=== PATIENT | male | born 1970 | race Caucasian/White ===

== ENCOUNTER 2016-04-06 06:31 | Day surgery (SDC) | payer OTHER ==
[~2016-04-06] VITALS: Ht 175.3 cm; Wt 101.8 kg
[~2016-04-06 06:31] MED LIST: FLEXERIL10 MG PO; LORTAB 7.5/5001 TAB; LORTAB 7.5/5001 TAB PO; NO HOME MEDICATIONS; PHENERGAN 25 TA25 MG PO; PROTONIX20 MG PO
[2016-04-06 07:02] VITALS: BP 117/84; PULSE 47; TEMP 97.5
[2016-04-06] MEDS ORDERED: LIPITOR20 MG PO (07:09)
[2016-04-06] MEDS ORDERED: FLONASEALLERGY NS (07:09)
[2016-04-06] MEDS ORDERED: INDERAL 10MG10 MG PO (07:09)
[2016-04-06] MEDS ORDERED: PROZAC 20MG20 MG PO (07:10)
[2016-04-06] MEDS ORDERED: ESKALITH C450 MG/TAB PO (07:10)
[2016-04-06 08:30] VITALS: BP 118/76; PULSE 52; TEMP 98.7
[2016-04-06 08:45] VITALS: BP 105/74; PULSE 49
[2016-04-06 09:00] VITALS: BP 101/66; PULSE 47
[2016-04-06 09:15] VITALS: BP 108/76; PULSE 88
[2016-04-06 12:20] VITALS: BP 107/67; PULSE 50
== END 2016-04-06 09:20 | disposition home or self-care (01) ==
LOC: SDCO 06:31
DX: D12.5 Benign neoplasm of sigmoid colon (principal); K57.30 Diverticulosis of large intestine without perforation or abscess without bleeding; R19.7 Diarrhea, unspecified; R63.4 Abnormal weight loss; F41.9 Anxiety disorder, unspecified; F32.9 Major depressive disorder, single episode, unspecified; F43.10 Post-traumatic stress disorder, unspecified; E78.00 Pure hypercholesterolemia, unspecified; K21.9 Gastro-esophageal reflux disease without esophagitis; Z79.899 Other long term (current) drug therapy
CPT/HCPCS: J2250; J3010; J7030

== ENCOUNTER 2021-05-04 11:30 | Outpatient (RCR) | payer OTHER ==
[~2021-05-04 11:30] MED LIST changes: +ESKALITH C450 MG/TAB PO; +FLONASEALLERGY NS; +INDERAL 10MG10 MG PO; +LIPITOR20 MG PO; +PROZAC 20MG20 MG PO
== END 2021-06-01 | disposition home or self-care (01) ==
LOC: MKS.ESL.PT → EDSTATUS 11:30 → MKS.ESL.PT 11:30
DX: R26.2 Difficulty in walking, not elsewhere classified (principal)

== ENCOUNTER 2021-07-25 10:36 | Outpatient (RCR) | payer OTHER | END 2021-08-01 | disposition home or self-care (01) | LOC: WSPT | DX: M54.51 Vertebrogenic low back pain (principal) ==

== ENCOUNTER 2021-08-29 15:00 | Outpatient (RCR) | payer OTHER | END 2021-08-31 | disposition home or self-care (01) | LOC: WSPT | DX: M54.51 Vertebrogenic low back pain (principal) ==

== ENCOUNTER → 2022-04-06 | Day surgery (SDC) | payer OTHER ==
[2022-04-06] VITALS (7 sets, daily range): BP systolic 109–131; BP diastolic 69–79; PULSE 74–97; TEMP 97.5–97.9
[~2022-04-06] VITALS: Ht 175.3 cm; Wt 106.4 kg
[~2022-04-06] MED LIST changes: +CRESTOR20 MG PO; +CYMBALTA 30MG30 MG PO; +DESYREL DIVIDO150 M1 PO; +FLEXERIL 1010 MG/TAB PO; +KLONOPIN 0.5MG0.5 MG PO; +LAMICTAL200 MG PO; +LATUDA120 MG PO; +LYRICA 150MG C150 MG PO; +MINIPRESS2 MG PO; +NAPROSYN500 MG PO; +PRILOSEC 20MG20 MG PO; +SANCTURA20 MG PO
--- NOTE | 2022-04-06 16:48 | NUR ---
1222 PT TO RECOVERY RM 6 FROM ENDO S/P COLONOSCOPY WITH RANDOM COLON BIOPSIES, STUPOROUS AND COOPERATIVE - HAS H/O SLOW WAKE UP. ASSISTED TO CHAIR WITH 2 PERSON ASSIST. PLACED ON MONITOR, VSS ON RA, AIRWAY PATENT. WARM BLANKETS REFRESHED. DENIES COMPLAINT. FAMILY IN ROOM. RECEIVED REPORT AND ASSUMED CARE OF PT FROM ENDO RN. 1235 PT STUPOROUS AND COOPERATIVE, MAINTAINING AIRWAY, VSS ON RA. IN ROOM. PT DENIES COMPLAINT, NAD. 1255 OBTUNDED AND ORIENTED, DR HAS BEEN INTO ROOM TO SPEAK WITH PT AND FAMILY. TOLERATING ICE CHIPS. DENIES COMPLAINT OR NEED. VSS ON RA. NAD. 1340 A&O, HAS TOLERATED APPLESAUCE AND ICE WATER, STEADY GAIT, NAD, VSS ON RA. DENIES COMPLAINT OR NEED. HAS BEEN FREQUENTLY CHECKED ON UNTIL THIS POINT. IV D/C'D. D/C PAPERWORK REVIEWED AND HANDED TO PT, WHO IS GETTING CHNAGED INTO CIVIES. \ 1355 TAKEN TO EXIT IN WITH ALL BELONGINGS AND PAPERWORK. REMAINS STABLE AND AWAKE, SAFELY AMBULATES TO PASSENGER SIDE OF VEHICLE - FAMILY DRIVING HOME.
== END ==
LOC: SDCO 09:00
DX: K64.0 First degree hemorrhoids (principal); K57.30 Diverticulosis of large intestine without perforation or abscess without bleeding; K21.9 Gastro-esophageal reflux disease without esophagitis; G47.33 Obstructive sleep apnea (adult) (pediatric); Z86.010 Personal history of colon polyps
CPT/HCPCS: J2704; J7120

== ENCOUNTER → 2022-05-01 | Outpatient (RCR) | payer OTHER | END | disposition home or self-care (01) | LOC: WSPT → WSC 04-13 10:30 → WSPT 04-16 10:30 | DX: M54.51 Vertebrogenic low back pain (principal); N40.1 Benign prostatic hyperplasia with lower urinary tract symptoms; F33.1 Major depressive disorder, recurrent, moderate; F43.12 Post-traumatic stress disorder, chronic; E11.9 Type 2 diabetes mellitus without complications ==

== ENCOUNTER → 2022-06-01 | Outpatient (RCR) | payer OTHER | END | disposition home or self-care (01) | LOC: WSPT → WSC 05-07 13:30 → WSPT 05-11 10:30 → WSC 05-28 10:30 → WSPT 10:30 | DX: M54.50 Low back pain, unspecified (principal) ==

== ENCOUNTER 2022-06-21 09:45 | Outpatient (RCR) | payer OTHER | END 2022-07-01 | disposition home or self-care (01) | LOC: WSPT | DX: M54.51 Vertebrogenic low back pain (principal) ==

== ENCOUNTER 2023-04-02 10:30 | Outpatient (RCR) | payer OTHER | END 2023-04-03 | disposition home or self-care (01) | LOC: WSPT | DX: S83.4 Sprain of collateral ligament of knee (principal); X58.XXXS Exposure to other specified factors, sequela ==

== ENCOUNTER 2023-05-21 12:45 | Outpatient (RCR) | payer OTHER | END 2023-06-02 | disposition home or self-care (01) | LOC: WSPT | DX: S83.4 Sprain of collateral ligament of knee (principal); X58.XXXS Exposure to other specified factors, sequela ==